=== PATIENT | female | born 2005 | race African-American/Black ===

== ENCOUNTER 2024-08-21 12:45 | Emergency (ER) | payer MEDICAID, SELFPAY ==
[2024-08-21 12:50] VITALS: BP 122/76; PULSE 95; RESP 18; TEMP 36.6; O2SAT 98; BMI 27.6
--- NOTE | 2024-08-21 12:50 | ED_ITS ---
HPI - Eye Problem General Chief complaint: Eye Problems Stated complaint: Eye irritation/redness Time Seen by Provider: 08/21/24 13:37 Source: patient Mode of arrival: ambulatory Limitations: no limitations History of Present Illness ED Provider: ERNESTO JOYCE PA-C HPI Narrative: 19 year old female with no significant pmhx presents to the ED today for evaluation of bilateral eye irritation since yesterday. Reports seasonal allergies. Admits to being outside or an extended period of time yesterday. She does not recall getting anything in her eyes. Reports minimal crusting to eyes on waking this morning. Admits to associated nasal congestion recently. Patient does not wear corrective lenses. Denies vision changes. Denies trauma/ injury to the eye. Related Data Previous Rx's ?Medication ?Instructions ?Recorded cetirizine 0.24 % eye drops in a 1 drp ophthalmic (eye) BID 5 days 08/21/24 dropperette #30 ea Allergies Allergy/AdvReac Type Severity Reaction Status Date / Time No Known Allergies Allergy Verified 08/21/24 12:51 Review of Systems Review of Systems: Constitutional: No fever, chills, fatigue, night sweats, weight changes ENT/Mouth: No ear pain, hearing loss, nasal congestion, sinus pain, rhinorrhea, sore throat Eyes: No swelling, redness, vision changes, discharge, +eye irritation Cardio: No chest pain, palpitations, KOHLI, orthopnea, peripheral edema Pulm: No SOB, cough, sputum, wheezing, dyspnea, hemoptysis GI: No nausea, vomiting, hematemesis, abdominal pain, diarrhea, constipation, hematochezia, melena : No irregular bleeding, dysuria, frequency, urgency, hesitancy, hematuria, flank pain, urinary flow changes, urinary incontinence or retention MSK: No back pain, neck pain, joint pain, myalgias Skin: No lesions, rashes Neuro: No weakness, numbness, paresthesias, LOC, dizziness, headache Psych: No anxiety/panic, depression, SI/HI, AH/VH All other systems reviewed and are negative. [facility] Past Medical History Attestation statement: The following information was validated with the patient. Source: old records reviewed and nursing notes reviewed Social History Social History Smoked in Last 30 Days: No Use of substances other than those prescribed or required for medical reasons: No Advance Directives: No Advance Directives Information Provided: Yes Do you have a plan to hurt others: No Plan Patient : No Physical Exam Vital Signs: Vital Signs: Last Vital Signs Temp 98 F 08/21/24 12:50 Pulse 95 08/21/24 12:50 Resp 18 08/21/24 12:50 BP 122/76 08/21/24 12:50 Pulse Ox 98 08/21/24 12:50 O2 Del Method Room Air 08/21/24 12:50 BMI result Body Mass Index 27.6 vital signs stable, afebrile General: Well appearing, in no acute distress. Skin: Warm, dry, intact. No rashes or lesions. Head: Normocephalic, atraumatic. EENT: Hearing is intact b/l. Moist mucous membranes.?No periorbital swelling. mild upper eyelid swelling b/l. No enophthalmous or exopthalmous. EOMs intact without pain or entrapment. PERRLA. Positive photophobia. No obvious foreign body or abrasion. No conjunctival injection or chemosis. No hazy cornea. Visual acuity OD 20/25, OS 20/25. On tetracaine exam, no reuptake to suggest abrasion or fb. No ulceration. No dendritic lesions. Neck: Supple without LAD Cardiac: Chest wall symmetric. RRR Lungs: Normal respiratory effort without accessory muscle use. CTA bilaterally Neuro: AOx3. Normal speech. Ambulating with steady gait. Course Course Course Narrative: No evidence of abrasion or foreign body on tetracaine/fluorescein exam. Visual acuity WNL. Exam is consistent with an allergic conjunctivitis. Will prescribe cetirizine eyedrops. Educated on rebound reaction, advised to use for no more than 1 week. Patient has remained stable throughout ED visit today. Discussed worrisome signs and symptoms and when to return to the ED. All questions answered at this time. Patient is agreeable with disposition and stable for discharge. Medications Administered Discontinued Medications Generic Name Dose Route Start Last Admin Trade Name Freq PRN Reason Stop Dose Admin Fluorescein Sodium 1 strip 08/21/24 12:52 08/21/24 13:45 Fluorescein Sodium Strip EYE-BOTH 08/21/24 12:53 1 strip ONCE ONE Administration Tetracaine HCl 1 drop 08/21/24 12:52 08/21/24 13:45 Tetracaine Hcl/Pf 0.5% Oph Janina 4 Ml Drops EYE-BOTH 08/21/24 12:53 1 drop ONCE ONE Administration Medical Decision Making Medical Decision Making MDM Narrative: 19 year old female with no significant pmhx presents to the ED today for evaluation of bilateral eye irritation since yesterday. Vital signs stable, afebrile. She is well-appearing and in no acute distress. on exam, no periorbital swelling. mild upper eyelid swelling b/l. No enophthalmous or exopthalmous. EOMs intact without pain or entrapment. PERRLA. Positive photophobia. No obvious foreign body or abrasion. No conjunctival injection or chemosis. No hazy cornea. Visual acuity OD 20/25, OS 20/25. On tetracaine exam, no reuptake to suggest abrasion or fb. No ulceration. No dendritic lesions. Differential diagnosis includes corneal abrasion, corneal ulceration, corneal FB, viral versus bacterial versus allergic conjunctivitis. Lower suspicion for iritis, keratitis. Unlikely pre-septal cellulitis, orbital cellulitis, acute angle closure glaucoma. Plan for tetracaine/fluorescein examination, VA, and disposition. Differential Diagnosis Differential Diagnoses: The differential diagnosis associated with the presentation includes as above. Admission/Observation Not indicated. Prescription Management I considered prescription management with: Other (Cetirizine eyedrops) Social Determinants Patient?s care significantly limited by Social Determinants of Health including: Other Social Determinant of Health Critical Care Time Critical Care Time Critical Care Time: No Discharge Plan Discharge Clinical Impression: Allergic conjunctivitis Patient Disposition: Home, Self-Care Instructions: Cetirizine (Into the eye), Conjunctivitis (ED) Additional Instructions: You were evaluated in the ED today for eye irritation. There is no abrasion or foreign body in either eye. Your exam is consistent with allergic conjunctivitis. See home instructions. Treatment for this is with an antihistamine eye drop. Instill 1 drop into each eye twice daily (8 hours apart) for 5 days. Do not use these eye drops for more than one week as this can cause a rebound reaction with worsening redness/irritation. Follow up with your PCP. Return with any new or worsening symptoms. In the case of an emergency call 911. Prescriptions: New cetirizine 0.24 % dropperette 1 drp ophthalmic (eye) BID 5 Days Qty: 30 0RF Rx Instructions: One drop into each eye twice daily (8 hours apart) for 5 days Referrals: Physician,None [Primary Care Provider] - Print Language: Estonian
[2024-08-21] MEDS: Tetracaine HCl/PF 0.5% Oph Sol 4 ML DROPS 1 DROP EYE-BOTH (13:45)
[2024-08-21] MEDS: Fluorescein Sodium STRIP 1 STRIP EYE-BOTH (13:45)
[2024-08-21 14:37] VITALS: BP 128/68; PULSE 72; RESP 20; TEMP 36.6; O2SAT 100
[2024-08-21 14:38] VITALS: BP 128/68; PULSE 72; RESP 20; TEMP 36.6; O2SAT 100
== END 2024-08-21 14:38 | disposition home or self-care (01) ==
PROVIDERS: Emergency Provider Emergency Medicine
DX: H10.13 Acute atopic conjunctivitis, bilateral (principal); H57.13 Ocular pain, bilateral
CPT/HCPCS: 99283; 99284